=== PATIENT | female | born 1980 | race Two or more races ===

== ENCOUNTER 2017-02-10 23:00 | Emergency (ER) | payer BC, MEDICAID ==
[~2017-02-10] VITALS: Ht 170.2 cm; Wt 81.6 kg
[2017-02-10 23:05] VITALS: BP 109/69
[2017-02-10] MEDS ORDERED: LIDOCAINE VISCOUS 2% UD 15 ML UDC ONE (23:55)
[2017-02-10] MEDS ORDERED: ONDANSETRON 4 MG TAB.RAPDIS ONE (23:55)
[2017-02-10] MEDS ORDERED: MAG HYDROX/AL HYDROX/SIMETH 30 ML UDC ONE (23:55)
[2017-02-11] MEDS ORDERED: LIDOCAINE VISCOUS 2% UD 15 ML UDC MM ONE
[2017-02-11] MEDS ORDERED: ONDANSETRON 4 MG TAB.RAPDIS SL ONE
[2017-02-11] MEDS ORDERED: MAG HYDROX/AL HYDROX/SIMETH 30 ML UDC PO ONE
== END 2017-02-11 00:12 | disposition home or self-care (01) ==
LOC: ER 23:01
DX: K29.70 Gastritis, unspecified, without bleeding (principal); K21.9 Gastro-esophageal reflux disease without esophagitis; J32.9 Chronic sinusitis, unspecified
CPT/HCPCS: 99283; A4606; Q0162; Z7610

== ENCOUNTER 2017-04-12 10:41 | Emergency (ER) | payer BC ==
[~2017-04-12] VITALS: Ht 167.6 cm; Wt 87.5 kg
[2017-04-12 10:45] VITALS: BP 130/77
[2017-04-12] MEDS ORDERED: KETOROLAC TROMETHAMINE INJ 30 MG/ML VIAL ONE (13:11)
[2017-04-12] MEDS ORDERED: KETOROLAC TROMETHAMINE INJ 60 MG/2 ML VIAL IM ONE (13:30)
== END 2017-04-12 13:15 | disposition home or self-care (01) ==
LOC: ER 10:42
DX: J06.9 Acute upper respiratory infection, unspecified (principal)
CPT/HCPCS: 71010; 96372; 99283; A4606; J1885; Z7610